=== PATIENT | male | born 1975 | race Caucasian/White ===

== ENCOUNTER 2024-09-02 18:25 | Observation (INO) | payer OTHER ==
--- NOTE | 2024-09-02 18:53 | ED ---
Weakness HPI - General Chief complaint: Weakness Stated complaint: Congestion,Weakness Time Seen by Provider: 09/02/24 18:33 Source: patient, RN notes reviewed, old records reviewed Mode of arrival: ambulatory Limitations: no limitations - History of Present Illness Initial comments: This is a 49-year-old male sent by primary care, patient went to primary care's office for evaluation of testosterone patient presents to us for shortness of breath weakness somnolence and feeling unwell. Patient has been borderline diabetes for some time as well as known to have elevated blood pressure without treatment. Patient takes no medications denies drugs or alcohol not currently a smoker. Patient states he has been severely short of breath for about a week and with any activity he gets severely short of breath and has to stop and sit down. MD Complaint: generalized weakness, lack of energy, difficulty walking -: days(s) Location: generalized Severity: severe Severity scale (1-10): 9 Consistency: constant Improves with: none Worsens with: none Context: recent illness Associated Symptoms: chest pain, loss of appetite, shortness of breath - Related Data Allergies Allergy/AdvReac Type Severity Reaction Status Date / Time No Known Allergies Allergy Verified 09/02/24 18:38 Review of Systems ROS Statement: Those systems with pertinent positive or pertinent negative responses have been documented in the HPI. ROS Other: All systems not noted in ROS Statement are negative. Past Medical History Past Medical History: Hypertension Additional Past Medical History / Comment(s): Low testosterone levels Additional Past Surgical History / Comment(s): oral surgery Smoking Status: Former smoker Past Alcohol Use History: Rare Past Drug Use History: Marijuana General Exam Limitations: no limitations General appearance: alert, in no apparent distress, anxious, in distress Head exam: Present: atraumatic, normocephalic, normal inspection Eye exam: Present: normal appearance, PERRL, EOMI. Absent: scleral icterus, conjunctival injection, periorbital swelling ENT exam: Present: normal exam, mucous membranes moist Neck exam: Present: normal inspection. Absent: tenderness, meningismus, lymphadenopathy Respiratory exam: Present: normal lung sounds bilaterally. Absent: respiratory distress, wheezes, rales, rhonchi, stridor Cardiovascular Exam: Present: normal rhythm, tachycardia, normal heart sounds. Absent: systolic murmur, diastolic murmur, rubs, gallop, clicks GI/Abdominal exam: Present: soft, normal bowel sounds. Absent: distended, tenderness, guarding, rebound, rigid Extremities exam: Present: normal inspection, full ROM, normal capillary refill. Absent: tenderness, pedal edema, joint swelling, calf tenderness Back exam: Present: normal inspection Neurological exam: Present: alert, oriented X3, CN II-XII intact Psychiatric exam: Present: normal affect, normal mood Skin exam: Present: warm, dry, intact, normal color. Absent: rash Course Vital Signs 09/02/24 09/02/24 09/02/24 18:35 19:19 19:40 Temperature 97.5 F L Pulse Rate 104 H 89 Respiratory 24 20 Rate Blood Pressure 200/132 179/105 201/110 O2 Sat by Pulse 95 98 Oximetry 09/02/24 09/02/24 09/02/24 19:45 19:54 20:10 Temperature Pulse Rate 89 85 89 Respiratory 18 18 18 Rate Blood Pressure 216/117 179/114 150/114 O2 Sat by Pulse 95 98 98 Oximetry 09/02/24 09/02/24 09/02/24 20:22 20:58 21:16 Temperature Pulse Rate 89 85 92 Respiratory 18 16 18 Rate Blood Pressure 167/119 160/98 144/117 O2 Sat by Pulse 98 96 98 Oximetry 09/02/24 22:01 Temperature Pulse Rate 79 Respiratory 18 Rate Blood Pressure 167/78 O2 Sat by Pulse 95 Oximetry - Reevaluation(s) Reevaluation #1: 09/02/24 22:16 Medical records reviewed Reevaluation #2: 09/02/24 22:16 Patient symptoms do seem to wax and wane here in the ER he was initially feeling good and wanted to go home but currently feeling weak short of breath and unwell Reevaluation #3: 09/02/24 22:16 Patient informed of results questions answered Reevaluation #4: Was pt. sent in by a medical professional or institution (, PA, SERVICE ADVISOR, urgent care, hospital, or [facility]...) When possible be specific @ -no Did you speak to anyone other than the patient for history (EMS, parent, family, police, friend...)? What history was obtained from this source @ -no Did you review nursing and triage notes (agree or disagree)? Why? @ -agree Are old charts reviewed (outside hosp., previous admission, EMS record, old EKG, old radiological studies, urgent care reports/EKG's, [facility] records)? Report findings @ -yes Differential Diagnosis (chest pain, altered mental status, abdominal pain women, abdominal pain men, vaginal bleeding, weakness, fever, dyspnea, syncope, headache, dizziness, GI bleed, back pain, seizure, CVA, palpatations, mental health, musculoskeletal)? @ -prior EKG interpreted by me (3pts min.). @ -yes X-rays interpreted by me (1pt min.). @ -yes negative for acute disease CT interpreted by me (1pt min.). @ -no U/S interpreted by me (1pt. min.). @ -no What testing was considered but not performed or refused? (CT, X-rays, U/S, labs)? Why? @ -none What meds were considered but not given or refused? Why? @ -none Did you discuss the management of the patient with other professionals (professionals i.e. , PA, SERVICE ADVISOR, lab, RT, psych nurse, dialysis social worker, farmworker field crop, teacher, chief marketing officer, correctional counselor/case manager)? Give summary @ -no Was smoking cessation discussed for >3mins.? @ -no Was critical care preformed (if so, how long)? @ -no Were there social determinants of health that impacted care today? How? (Homelessness, low income, unemployed, alcoholism, drug addiction, transportation, low edu. Level, literacy, decrease access to med. care, long-term, rehab)? @ -none Was there de-escalation of care discussed even if they declined (Discuss DNR or withdrawal of care, Hospice)? DNR status @ -no What co-morbidities impacted this encounter? (DM, HTN, Smoking, COPD, CAD, Cancer, CVA, ARF, Chemo, Hep., AIDS, mental health diagnosis, sleep apnea, morbid obesity)? @ -none Was patient admitted / discharged? Hospital course, mention meds given and route, prescriptions, significant lab abnormalities, going to OR and other pertinent info. @ - Undiagnosed new problem with uncertain prognosis? @ -no Drug Therapy requiring intensive monitoring for toxicity (Heparin, Nitro, Insulin, Cardizem)? @ -no Were any procedures done? @ -no Diagnosis/symptom? @ - Acute, or Chronic, or Acute on Chronic? @ -Acute Uncomplicated (without systemic symptoms) or Complicated (systemic symptoms)? @ -Complicated Side effects of treatment? @ -no Exacerbation, Progression, or Severe Exacerbation? @ -exacerbation Poses a threat to life or bodily function? How? (Chest pain, USA, IA, pneumonia, PE, COPD, DKA, ARF, appy, cholecystitis, CVA, Diverticulitis, Homicidal, Suicidal, threat to staff... and all critical care pts) @ -yes Reevaluation #5: Differential Dyspnea: Coronary syndrome, arrhythmia, tamponade, asthma, COPD, pulmonary embolism, pneumonia, pneumothorax, pulmonary effusion, anaphylaxis, diabetic ketoacidosis, flailed chest, pulmonary contusion, diaphragmatic rupture, anemia, neuromuscular, this is not meant to be an all-inclusive list. Differential Weakness: Hypoglycemia, shock, sepsis, hyponatremia, anemia, infection, IA, ETOH, adverse medicine reaction, overdose, stroke, this is not meant to be an all-inclusive list. - Consultations Consultation #1: Spoke with Dr. Forrester who agrees to admit this patient EKG Findings - EKG Comments: EKG Findings:: EKG is sinus 97 NC 184 QRS 93 QTc 395 - EKG Results: EKG: interpreted by SHAJI Medical Decision Making - Medical Decision Making 49 male presented to the ER for evaluation of feeling unwell shortness of breath especially with exertion symptoms worsening over couple days now. Patient states he is thirsty when the bathroom the time he does have new onset diabetes he is also found to have significantly uncontrolled and new diagnosis of hypertension with pulmonary edema on x-ray will admit for cardiology evaluation echo, mild diuresis watching for blood sugar and treatment of diabetes, blood pressure is out of control taking multiple medications to treat - Lab Data Result diagrams: 09/02/24 18:57 09/02/24 18:57 Lab Results 09/02/24 09/02/24 09/02/24 Range/Units 18:52 18:57 18:57 WBC 7.71 (4.50-10.00) 10*3/uL RBC 6.02 H (4.40-5.60) 10*6/uL Hgb 18.6 H (13.0-17.0) g/dL Hct 52.2 H (39.6-50.0) % MCV 86.7 (80.0-97.0) fL MCH 30.9 (27.0-32.0) pg MCHC 35.6 (32.0-37.0) g/dL Plt Count 228 (140-440) 10*3/uL MPV 10.5 (9.5-12.2) fL Immature Gran % (Auto) 1.0 % Neutrophils % 62.4 % Lymphocytes % 25.6 % Monocytes % 9.5 % Eosinophils % 1.0 % Basophils % 0.5 % Immature Gran # 0.08 H (0.00-0.04) 10*3/uL Neutrophils # 4.81 (1.80-7.70) 10*3/uL Lymphocytes # 1.97 (0.90-5.00) 10*3/uL Monocytes # 0.73 (0.20-1.00) 10*3/uL Eosinophils # 0.08 (0.04-0.35) 10*3/uL Basophils # 0.04 (0.00-0.10) 10*3/uL PT 10.2 (10.0-12.5) sec INR 0.9 (<1.2) APTT 22.0 (22.0-30.0) sec D-Dimer 0.32 (<0.60) mg/L FEU VBG pH (7.31-7.41) VBG pCO2 (37-51) mmHg VBG HCO3 (24-28) mmol/L Sodium (137-145) mmol/L Potassium (3.5-5.1) mmol/L Chloride (98-107) mmol/L Carbon Dioxide (22-30) mmol/L Anion Gap mmol/L BUN (9-20) mg/dL Creatinine (0.66-1.25) mg/dL Est GFR (CKD-EPI)AfAm (>60 ml/min/1.73 sqM) Est GFR (CKD-EPI)NonAf (>60 ml/min/1.73 sqM) Glucose (74-99) mg/dL POC Glucose (mg/dL) 345 H (70-110) mg/dL POC Glu Litigation Examiner ID [facility] Plasma Lactic Acid Paolo (0.7-2.0) mmol/L Calcium (8.4-10.2) mg/dL Phosphorus (2.5-4.5) mg/dL Magnesium (1.6-2.3) mg/dL Total Bilirubin (0.2-1.3) mg/dL AST (17-59) U/L ALT (4-49) U/L Alkaline Phosphatase (38-126) U/L Troponin I (0.000-0.034) ng/mL NT-Pro-B Natriuret Pep pg/mL Total Protein (6.3-8.2) g/dL Albumin (3.5-5.0) g/dL Lipase (23-300) U/L Acetone, Qual (Negative) Influenza Type A (PCR) (Not Detectd) Influenza Type B (PCR) (Not Detectd) RSV (PCR) (Not Detectd) SARS-CoV-2 (PCR) (Not Detectd) Group A Strep (PCR) (Not Detectd) 09/02/24 09/02/24 09/02/24 Range/Units 18:57 18:57 18:57 WBC (4.50-10.00) 10*3/uL RBC (4.40-5.60) 10*6/uL Hgb (13.0-17.0) g/dL Hct (39.6-50.0) % MCV (80.0-97.0) fL MCH (27.0-32.0) pg MCHC (32.0-37.0) g/dL Plt Count (140-440) 10*3/uL MPV (9.5-12.2) fL Immature Gran % (Auto) % Neutrophils % % Lymphocytes % % Monocytes % % Eosinophils % % Basophils % % Immature Gran # (0.00-0.04) 10*3/uL Neutrophils # (1.80-7.70) 10*3/uL Lymphocytes # (0.90-5.00) 10*3/uL Monocytes # (0.20-1.00) 10*3/uL Eosinophils # (0.04-0.35) 10*3/uL Basophils # (0.00-0.10) 10*3/uL PT (10.0-12.5) sec INR (<1.2) APTT (22.0-30.0) sec D-Dimer (<0.60) mg/L FEU VBG pH (7.31-7.41) VBG pCO2 (37-51) mmHg VBG HCO3 (24-28) mmol/L Sodium 137 (137-145) mmol/L Potassium 4.9 (3.5-5.1) mmol/L Chloride 102 (98-107) mmol/L Carbon Dioxide 28 (22-30) mmol/L Anion Gap 7 mmol/L BUN 22 H (9-20) mg/dL Creatinine 0.94 (0.66-1.25) mg/dL Est GFR (CKD-EPI)AfAm >90 (>60 ml/min/1.73 sqM) Est GFR (CKD-EPI)NonAf >90 (>60 ml/min/1.73 sqM) Glucose 354 H (74-99) mg/dL POC Glucose (mg/dL) (70-110) mg/dL POC Glu Litigation Examiner ID Plasma Lactic Acid Paolo 1.8 (0.7-2.0) mmol/L Calcium 9.9 (8.4-10.2) mg/dL Phosphorus 3.9 (2.5-4.5) mg/dL Magnesium 1.8 (1.6-2.3) mg/dL Total Bilirubin 0.5 (0.2-1.3) mg/dL AST 38 (17-59) U/L ALT 51 H (4-49) U/L Alkaline Phosphatase 61 (38-126) U/L Troponin I <0.012 (0.000-0.034) ng/mL NT-Pro-B Natriuret Pep <20 pg/mL Total Protein 8.0 (6.3-8.2) g/dL Albumin 4.3 (3.5-5.0) g/dL Lipase 192 (23-300) U/L Acetone, Qual Negative (Negative) Influenza Type A (PCR) (Not Detectd) Influenza Type B (PCR) (Not Detectd) RSV (PCR) (Not Detectd) SARS-CoV-2 (PCR) (Not Detectd) Group A Strep (PCR) (Not Detectd) 09/02/24 09/02/24 09/02/24 Range/Units 18:58 19:19 19:19 WBC (4.50-10.00) 10*3/uL RBC (4.40-5.60) 10*6/uL Hgb (13.0-17.0) g/dL Hct (39.6-50.0) % MCV (80.0-97.0) fL MCH (27.0-32.0) pg MCHC (32.0-37.0) g/dL Plt Count (140-440) 10*3/uL MPV (9.5-12.2) fL Immature Gran % (Auto) % Neutrophils % % Lymphocytes % % Monocytes % % Eosinophils % % Basophils % % Immature Gran # (0.00-0.04) 10*3/uL Neutrophils # (1.80-7.70) 10*3/uL Lymphocytes # (0.90-5.00) 10*3/uL Monocytes # (0.20-1.00) 10*3/uL Eosinophils # (0.04-0.35) 10*3/uL Basophils # (0.00-0.10) 10*3/uL PT (10.0-12.5) sec INR (<1.2) APTT (22.0-30.0) sec D-Dimer (<0.60) mg/L FEU VBG pH 7.35 (7.31-7.41) VBG pCO2 54 H (37-51) mmHg VBG HCO3 30 H (24-28) mmol/L Sodium (137-145) mmol/L Potassium (3.5-5.1) mmol/L Chloride (98-107) mmol/L Carbon Dioxide (22-30) mmol/L Anion Gap mmol/L BUN (9-20) mg/dL Creatinine (0.66-1.25) mg/dL Est GFR (CKD-EPI)AfAm (>60 ml/min/1.73 sqM) Est GFR (CKD-EPI)NonAf (>60 ml/min/1.73 sqM) Glucose (74-99) mg/dL POC Glucose (mg/dL) (70-110) mg/dL POC Glu Litigation Examiner ID Plasma Lactic Acid Paolo (0.7-2.0) mmol/L Calcium (8.4-10.2) mg/dL Phosphorus (2.5-4.5) mg/dL Magnesium (1.6-2.3) mg/dL Total Bilirubin (0.2-1.3) mg/dL AST (17-59) U/L ALT (4-49) U/L Alkaline Phosphatase (38-126) U/L Troponin I (0.000-0.034) ng/mL NT-Pro-B Natriuret Pep pg/mL Total Protein (6.3-8.2) g/dL Albumin (3.5-5.0) g/dL Lipase (23-300) U/L Acetone, Qual (Negative) Influenza Type A (PCR) Not Detected (Not Detectd) Influenza Type B (PCR) Not Detected (Not Detectd) RSV (PCR) Not Detected (Not Detectd) SARS-CoV-2 (PCR) Not Detected (Not Detectd) Group A Strep (PCR) NOT DETECTED (Not Detectd) - EKG Data -: EKG Interpreted by Me - Radiology Data Radiology results: report reviewed (Chest x-ray is positive for pulmonary edema), image reviewed Critical Care Time Critical Care Time: Yes Total Critical Care Time: 31 Disposition Clinical Impression: Dehydration, Hyperglycemia, Newly diagnosed diabetes, Hypertension, Hypertensive emergency, Pulmonary edema Disposition: ADMITTED IP TO THIS [facility] Condition: Serious Is patient prescribed a controlled substance at d/c from ED?: No Referrals: Cesar Forrester MD [Primary Care Provider] - 1-2 days Time of Disposition: 22:15
[2024-09-02 18:54] LABS: Glucose,Whole Blood 345 mg/dL (70-110)
[2024-09-02 19:05] LABS: VBG PH 7.35 (7.31-7.41)
[2024-09-02 19:05] LABS: Basophils # (A) 0.04 10*3/uL (0.00-0.10); Basophils % (A) 0.5 %; Eosinophils # (A) 0.08 10*3/uL (0.04-0.35); HCT 52.2 % (39.6-50.0); HGB 18.6 g/dL (13.0-17.0); Lymphocytes # (A) 1.97 10*3/uL (0.90-5.00); Lymphocytes % (A) 25.6 %; MCH 30.9 pg (27.0-32.0); MCHC 35.6 g/dL (32.0-37.0); MCV 86.7 fL (80.0-97.0); Mean Platelet Volume 10.5 fL (9.5-12.2); Monocytes # (A) 0.73 10*3/uL (0.20-1.00); Monocytes % (A) 9.5 %; Neutrophils # (A) 4.81 10*3/uL (1.80-7.70); Neutrophils % (A) 62.4 %; Platelet Count 228 10*3/uL (140-440); RBC 6.02 10*6/uL (4.40-5.60); RDW 12.1 % (11.5-14.5); WBC 7.71 10*3/uL (4.50-10.00)
[2024-09-02] MEDS: KETOROLAC 15 MG/ML 1 ML VIAL IVP STA (19:16)
[2024-09-02] MEDS: SODIUM CHLORIDE 0.9% 1,000 ML IV SCH (19:17)
[2024-09-02] MEDS: ACETAMINOPHEN IV (For NPO) 1,000 MG in EMPTY BAG 1 BAG IVPB STA (19:25)
[2024-09-02 19:30] LABS: ALT 51 U/L (4-49); African American GFR (CKD) >90 (>60 ml/min/1.73 sqM); Albumin 4.3 g/dL (3.5-5.0); Anion Gap 7 mmol/L; Blood Urea Nitrogen 22 mg/dL (9-20); Calcium 9.9 mg/dL (8.4-10.2); Carbon Dioxide 28 mmol/L (22-30); Chloride 102 mmol/L (98-107); Glucose 354 mg/dL (74-99); Lipase 192 U/L (23-300); Non-African American GFR(CKD) >90 (>60 ml/min/1.73 sqM); Sodium 137 mmol/L (137-145); Total Bilirubin 0.5 mg/dL (0.2-1.3)
[2024-09-02 19:31] LABS: AST 38 U/L (17-59); Alkaline Phosphatase 61 U/L (38-126); Magnesium 1.8 mg/dL (1.6-2.3); Phosphorus 3.9 mg/dL (2.5-4.5); Potassium 4.9 mmol/L (3.5-5.1)
[2024-09-02 19:32] LABS: NT-Pro-B-Type Natriuretic Pept <20 pg/mL
[2024-09-02 19:35] LABS: INR 0.9 (<1.2); Prothrombin Time 10.2 sec (10.0-12.5)
[2024-09-02] MEDS: LABETALOL 5 MG/ML VIAL MDV IVP STA (19:48)
[2024-09-02] MEDS: cloNIDine 0.2 MG/24HR PATCH TRANSDERM STA (19:56)
[2024-09-02 20:03] LABS: Influenza A Not Detected (Not Detectd); Influenza B Not Detected (Not Detectd); RSV Not Detected (Not Detectd)
--- NOTE | 2024-09-02 20:35 | XR ---
EXAMINATION TYPE: XR chest 2V DATE OF EXAM: 09/02/2024 CLINICAL INDICATION: Male, 49 years old with history of sob, TECHNIQUE: Frontal and lateral views of the chest are obtained. COMPARISON: None FINDINGS: There is cardiomegaly with mild central vascular congestion. No pleural effusion or pneumo thorax seen bilaterally. The osseous structures are intact. IMPRESSION: Findings suggest mild CHF exacerbation. Correlate clinically. [facility], , 09/02/2024 8:33 PM
[2024-09-02] MEDS: FUROSEMIDE 10 MG/ML 10 ML VIAL IV STA (21:06)
[2024-09-02] MEDS: SODIUM CHLORIDE 0.9% 1,000 ML IV ONE (21:08)
[2024-09-02] MEDS: SODIUM CHLORIDE 0.9% 500 ML 500 ML IV ONE (21:08)
[2024-09-02] MEDS: ENALAPRILAT 1.25 MG/ML 1 ML VIAL IVP STA (21:15)
[2024-09-02] MEDS ORDERED: ONDANSETRON 4 MG/2 ML VIAL IVP PRN (22:12)
[2024-09-02] MEDS ORDERED: MORPHINE SULFATE 4 MG/ML SYRINGE IV PRN (22:12)
[2024-09-02] MEDS ORDERED: NALOXONE 0.4 MG/ML 1 ML VIAL IV PRN (22:12)
[2024-09-02 22:21] LABS: Glucose,Whole Blood 318 mg/dL (70-110)
[2024-09-02] MEDS: hydrALAZINE HCL 20 MG/ML 1 ML VIAL IVP STA (22:23)
[2024-09-02] MEDS: INSULIN REGULAR 100 UNIT/ML VIAL (IM/SQ) SQ ONE (22:24)
[2024-09-02] MEDS: METOPROLOL TARTRATE 25 MG TAB PO SCH (22:24)
[2024-09-02 22:51] LABS: Glucose,Whole Blood 312 mg/dL (70-110)
[2024-09-03 00:36] LABS: Basophils # (A) 0.01 10*3/uL (0.00-0.10); Basophils % (A) 0.2 %; Eosinophils # (A) 0.07 10*3/uL (0.04-0.35); Eosinophils % (A) 1.1 %; HCT 46.2 % (39.6-50.0); HGB 16.2 g/dL (13.0-17.0); Lymphocytes # (A) 2.05 10*3/uL (0.90-5.00); Lymphocytes % (A) 33.4 %; MCH 30.9 pg (27.0-32.0); MCHC 35.1 g/dL (32.0-37.0); Mean Platelet Volume 10.5 fL (9.5-12.2); Monocytes # (A) 0.52 10*3/uL (0.20-1.00); Monocytes % (A) 8.5 %; Neutrophils # (A) 3.44 10*3/uL (1.80-7.70); Platelet Count 195 10*3/uL (140-440); RBC 5.25 10*6/uL (4.40-5.60); RDW 12.4 % (11.5-14.5); WBC 6.14 10*3/uL (4.50-10.00)
[2024-09-03 01:01] LABS: ALT 38 U/L (4-49); AST 27 U/L (17-59); African American GFR (CKD) >90 (>60 ml/min/1.73 sqM); Albumin 3.5 g/dL (3.5-5.0); Alkaline Phosphatase 66 U/L (38-126); Anion Gap 11 mmol/L; Blood Urea Nitrogen 21 mg/dL (9-20); Carbon Dioxide 25 mmol/L (22-30); Chloride 100 mmol/L (98-107); Glucose 384 mg/dL (74-99); Magnesium 1.6 mg/dL (1.6-2.3); Non-African American GFR(CKD) >90 (>60 ml/min/1.73 sqM); Phosphorus 4.1 mg/dL (2.5-4.5); Potassium 4.2 mmol/L (3.5-5.1); Sodium 136 mmol/L (137-145); Total Bilirubin 0.3 mg/dL (0.2-1.3); Total Protein 6.3 g/dL (6.3-8.2)
[2024-09-03] MEDS ORDERED: ACETAMINOPHEN TAB 325 MG TAB PO PRN (02:47)
[2024-09-03] MEDS: ACETAMINOPHEN TAB 325 MG TAB PO PRN (03:02)
[2024-09-03 04:34] LABS: Appearance,Urine Clear (Clear); Bilirubin,Urine Negative (Negative); Blood,Urine Negative (Negative); Color,Urine Colorless; Glucose,Urine (UA) 4+ (Negative); Ketones,Urine Negative (Negative); Leukocyte Esterase,Urine Negative (Negative); Nitrite,Urine Negative (Negative); PH, Urine 5.5 (5.0-8.0); Protein,Urine Negative (Negative); Specific Gravity,Urine 1.034 (1.001-1.035); Urobilinogen,Urine <2.0 mg/dL (<2.0)
[2024-09-03] MEDS: FUROSEMIDE 40 MG TAB PO SCH (09:06)
[2024-09-03] MEDS: lisinopriL 20 MG TAB PO SCH (09:06)
[2024-09-03] MEDS: hydrALAZINE HCL 50 MG TAB PO SCH (09:06)
[2024-09-03] MEDS: VALSARTAN 80 MG TAB PO SCH ×2 (09:07→20:48)
[2024-09-03] MEDS: INSULIN GLARGINE (LANTUS) 100 UNIT/ML SYR SQ SCH (09:30)
[2024-09-03 11:37] LABS: Glucose,Whole Blood 276 mg/dL (70-110)
[2024-09-03] MEDS: amLODIPine 5 MG TAB PO SCH (11:59)
[2024-09-03] MEDS: carvediloL 6.25 MG TAB PO SCH (11:59)
[2024-09-03] MEDS: ASPIRIN 81 MG PO SCH (11:59)
[2024-09-03] MEDS: DAPAGLIFLOZIN PROPANEDIOL 10 MG TABLET PO SCH (12:00)
[2024-09-03] MEDS: metFORMIN 500 MG TAB PO SCH (12:00)
[2024-09-03] MEDS: TRIAMTERENE-HCTZ 37.5-25MG 1 EACH CAP PO SCH (12:00)
[2024-09-03] MEDS: INSULIN LISPRO (HumaLOG) 100 UNIT/ML 10 mL VL SQ SCH (12:03)
--- NOTE | 2024-09-03 12:29 | P.CRDCN ---
History of Present Illness History of present illness: HISTORY OF PRESENT ILLNESS: This is a 49-year-old male with a past medical history significant for hypertension and diabetes. Patient does not follow with a cell maker. We have been asked to see the patient in consultation for hypertension. Patient examined at the bedside. Patient states he presented to the hospital with a chief complaint of shortness of breath. He states he has been feeling short of breath for the past week. He denies having any chest pain or pressure. He reports that he was recently diagnosed with diabetes and hypertension. Additionally he was started on testosterone injections outpatient due to low libido. He reports occasional alcohol use. He is a non-smoker. Denies any drug use. Patient was found to have extremely elevated blood pressure upon admission with a reading of 200/132. DIAGNOSTICS: - EKG reveals sinus mechanism with no signs of acute ischemia. - Chest xray findings suggest mild CHF exacerbation. Correlate clinically.. - Laboratory data: WBC 6.14. Hemoglobin 16.2. Platelet count 195. Sodium 136. Potassium 4.2. BUN 21. Creatinine 0.87. Troponin negative x 2. TSH 1.670. proBNP less than 20. - Current home cardiac medications include losartan 100 mg daily, rosuvastatin 40 mg daily, amlodipine 10 mg daily, Catapres 0.1 mg daily. - No previous echocardiogram, stress test, or cardiac catheterization available in EMR for review REVIEW OF SYSTEMS: At the time of my exam: CONSTITUTIONAL: Denies fever or chills. HEENT: Denies blurred vision, vision changes, or eye pain. Denies hemoptysis CARDIOVASCULAR: Denies chest pain. Denies orthopnea. Denies PND. Denies palpitations RESPIRATORY: Denies shortness of breath. GASTROINTESTINAL: Denies abdominal pain. Denies nausea or vomiting. HEMATOLOGIC: Denies bleeding disorders. GENITOURINARY: Denies any blood in urine. SKIN: Denies pruitis. Denies rash. PHYSICAL EXAM: VITAL SIGNS: Reviewed. GENERAL: Well-developed in no acute distress. HEENT: Head is normocephalic. Pupils are equal, round. Sclerae anicteric. Mucous membranes of the mouth are moist. Neck supple. No JVD or thyromegaly LUNGS: Respirations even and unlabored. Lungs essentially clear to auscultation bilaterally. HEART: Regular rate and rhythm. S1 and S2 heard. ABDOMEN: Soft. Nondistended. Nontender. EXTREMITIES: Normal range of motion. No clubbing or cyanosis. Peripheral pulses intact. No lower extremity edema NEUROLOGIC: Awake and alert. Oriented x 3. ASSESSMENT: Hypertensive emergency Recently diagnosed hypertension Recently diagnosed diabetes Low libido, recently started on testosterone injections outpatient Polycythemia, likely secondary to testosterone injections Morbid obesity: BMI 44.8 PLAN: Obtain 2D echo to assess cardiac structure and function Check hemoglobin A1c and lipid panel TSH checked and unremarkable Discontinue clonidine, metoprolol, lisinopril, Lasix, and hydralazine Add metformin 500 mg twice a day Begin amlodipine 5 mg daily, aspirin 81 mg daily, carvedilol 6.25 mg twice a day, Lipitor 40mg daily, Farxiga 10 mg daily, valsartan 80 mg twice a day, and Dyazide 37.5-25 mg daily Continue to monitor blood pressure Recommend discontinuation of testosterone Recommend outpatient stress testing Continue to monitor patient for additional 24 hours Anticipate discharge home tomorrow Further recommendations pending patient course Nurse practitioner note has been reviewed by physician. Signing provider agrees with the documented findings, assessment, and plan of care documented by [employer] as a scribe. Past Medical History Past Medical History: Hypertension Additional Past Medical History / Comment(s): Low testosterone levels, high blood surgars ("not diabetic") History of Any Multi-Drug Resistant Organisms: None Reported Additional Past Surgical History / Comment(s): oral surgery Smoking Status: Former smoker Past Alcohol Use History: Rare Past Drug Use History: Marijuana Medications and Allergies Home Medications Medication Instructions Recorded Confirmed Type Glimepiride [Amaryl] 2 mg PO DAILY 09/03/24 09/03/24 History Losartan Potassium [Cozaar] 100 mg PO DAILY 09/03/24 09/03/24 History Rosuvastatin Calcium [Crestor] 40 mg PO DAILY 09/03/24 09/03/24 History Testosterone Cypionate 200 mg IM Q14D 09/03/24 09/03/24 History [Depo-Testosterone] amLODIPine [Norvasc] 10 mg PO BID 09/03/24 09/03/24 History cloNIDine HCL [Catapres] 0.1 mg PO DAILY 09/03/24 09/03/24 History Allergies Allergy/AdvReac Type Severity Reaction Status Date / Time No Known Allergies Allergy Verified 09/03/24 09:21 Physical Exam Vitals: Vital Signs Temp Pulse Pulse Resp BP BP Pulse Ox 09/03/24 07:13 98 F 71 17 171/101 99 09/03/24 02:21 97.5 F L 92 19 153/92 98 09/03/24 01:50 66 16 144/80 100 09/02/24 22:51 88 16 169/70 98 09/02/24 22:01 79 18 167/78 95 09/02/24 21:16 92 18 144/117 98 09/02/24 20:58 85 16 160/98 96 09/02/24 20:22 89 18 167/119 98 09/02/24 20:10 89 18 150/114 98 09/02/24 19:54 85 18 179/114 98 09/02/24 19:45 89 18 216/117 95 09/02/24 19:40 201/110 09/02/24 19:19 89 20 179/105 98 09/02/24 18:35 97.5 F L 104 H 24 200/132 95 Intake and Output 09/02/24 09/03/24 09/03/24 22:59 06:59 14:59 Other: # Voids 3 Weight 171.458 kg 171.458 kg Results 09/03/24 00:05 09/03/24 00:05 Cardiac Enzymes 09/02/24 09/02/24 09/03/24 Range/Units 18:57 18:57 00:05 AST 38 (17-59) U/L Troponin I <0.012 0.013 (0.000-0.034) ng/mL 09/03/24 09/03/24 Range/Units 00:05 06:53 AST 27 (17-59) U/L Troponin I 0.014 (0.000-0.034) ng/mL Coagulation 09/02/24 Range/Units 18:57 PT 10.2 (10.0-12.5) sec APTT 22.0 (22.0-30.0) sec CBC 09/02/24 09/03/24 Range/Units 18:57 00:05 WBC 7.71 6.14 (4.50-10.00) 10*3/uL RBC 6.02 H 5.25 (4.40-5.60) 10*6/uL Hgb 18.6 H 16.2 (13.0-17.0) g/dL Hct 52.2 H 46.2 (39.6-50.0) % Plt Count 228 195 (140-440) 10*3/uL Comprehensive Metabolic Panel 09/02/24 09/03/24 Range/Units 18:57 00:05 Sodium 137 136 L (137-145) mmol/L Potassium 4.9 4.2 (3.5-5.1) mmol/L Chloride 102 100 (98-107) mmol/L Carbon Dioxide 28 25 (22-30) mmol/L BUN 22 H 21 H (9-20) mg/dL Creatinine 0.94 0.87 (0.66-1.25) mg/dL Glucose 354 H 384 H (74-99) mg/dL Calcium 9.9 9.0 (8.4-10.2) mg/dL AST 38 27 (17-59) U/L ALT 51 H 38 (4-49) U/L Alkaline Phosphatase 61 66 (38-126) U/L Total Protein 8.0 6.3 (6.3-8.2) g/dL Albumin 4.3 3.5 (3.5-5.0) g/dL Current Medications Generic Name Dose Route Start Last Admin Trade Name Freq PRN Reason Stop Dose Admin Acetaminophen 650 mg 09/03/24 02:57 09/03/24 03:02 Acetaminophen Tab 325 Mg Tab PO 650 mg Q4HR PRN Administration Fever and/ or Pain Furosemide 40 mg 09/03/24 09:00 09/03/24 09:06 Furosemide 40 Mg Tab PO 40 mg DAILY FELIPE Administration Hydralazine HCl 100 mg 09/03/24 09:00 09/03/24 09:06 Hydralazine Hcl 50 Mg Tab PO 100 mg TID FELIPE Administration Sodium Chloride 1,000 mls @ 130 mls/hr 09/02/24 19:00 09/03/24 01:43 Saline 0.9% IV Not Given .[id number] [facility] Insulin Glargine 60 unit 09/03/24 07:00 09/03/24 09:30 Insulin Glargine (Lantus) 100 Unit/Ml Syr SQ 60 unit DAILY@0700 FELIPE Administration Insulin Human Lispro 10 unit 09/03/24 12:30 Insulin Lispro (Humalog) 100 Unit/Ml 10 Ml Vl SQ ACHS [facility] Lisinopril 40 mg 09/03/24 09:00 09/03/24 09:06 Lisinopril 20 Mg Tab PO 40 mg DAILY FELIPE Administration Metoprolol Tartrate 25 mg 09/02/24 22:15 09/03/24 09:06 Metoprolol Tartrate 25 Mg Tab PO 25 mg BID FELIPE Administration Morphine Sulfate 4 mg 09/02/24 22:12 Morphine Sulfate 4 Mg/Ml Syringe IV Q4HR PRN Severe Pain (Scale 7 to 10) Naloxone HCl 0.2 mg 09/02/24 22:12 Naloxone 0.4 Mg/Ml 1 Ml Vial IV Q2M PRN Opioid Reversal Ondansetron HCl 4 mg 09/02/24 22:12 Ondansetron 4 Mg/2 Ml Vial IVP Q8HR PRN Nausea And Vomiting Valsartan 80 mg 09/03/24 09:00 09/03/24 09:07 Valsartan 80 Mg Tab PO 80 mg DAILY FELIPE Administration Intake and Output 09/02/24 09/03/24 09/03/24 22:59 06:59 14:59 Other: # Voids 3 Weight 171.458 kg 171.458 kg 09/03/24 00:05 09/03/24 00:05
--- NOTE | 2024-09-03 12:59 | CA ---
Transthoracic Echo Report Name: Raymond Garcia Age: 49 Gender: M : 1975 Exam Date: 09/03/2024 09:50 Exam Location: [facility] Ht (in): 77 Wt (lb): 378 Ordering Physician: William Ruiz DO Attending/Referring Phys: [id number], Sara Payroll Director Marlene Chavarria RDCS Procedure CPT: Indications: chf Cardiac Hx: Technical Quality: Fair Contrast 1: Total Dose (mL): Contrast 2: Total Dose (mL): MEASUREMENTS (Male / Female) Normal Values 2D ECHO LV Diastolic Diameter PLAX 5.2 cm 4.2 - 5.9 / 3.9 - 5.3 cm LV Systolic Diameter PLAX 3.2 cm IVS Diastolic Thickness 1.5 cm 0.6 - 1.0 / 0.6 - 0.9 cm LVPW Diastolic Thickness 1.4 cm 0.6 - 1.0 / 0.6 - 0.9 cm LV Relative Wall Thickness 0.6 RV Internal Dim ED PLAX 2.7 cm LA Systolic Diameter LX 4.9 cm 3.0 - 4.0 / 2.7 - 3.8 cm LV Diastolic Volume MOD BP 155.1 cm??? 67 - 155 / 56 - 104 cm??? LV Systolic Volume MOD BP 62.7 cm??? 22 - 58 / 19 - 49 cm??? LV Ejection Fraction MOD BP 59.6 % >= 55 % LV Cardiac Index MOD BP 2366.9 cm???/min???m??? LV Diastolic Volume MOD 4C 198.9 cm??? LV Systolic Volume MOD 4C 71.3 cm??? LV Ejection Fraction MOD 4C 64.2 % LV Cardiac Index MOD 4C 3267.9 cm???/min???m??? LV Diastolic Length 4C 9.8 cm LV Systolic Length 4C 8.4 cm LV Diastolic Volume MOD 2C 125.4 cm??? LV Systolic Volume MOD 2C 55.5 cm??? LV Ejection Fraction MOD 2C 55.8 % LV Cardiac Index MOD 2C 1790.5 cm???/min???m??? LV Diastolic Length 2C 9.8 cm LV Systolic Length 2C 8.4 cm LA Volume 81.2 cm??? 18 - 58 / 22 - 52 cm??? LA Volume Index 26.0 cm???/m??? 16 - 28 cm???/m??? M-MODE Aortic Root Diameter MM 3.5 cm LA Systolic Diameter MM 4.5 cm LA Ao Ratio MM 1.3 AV Cusp Separation MM 2.3 cm DOPPLER AV Peak Velocity 158.6 cm/s AV Peak Gradient 10.1 mmHg MV Area PHT 3.7 cm??? Mitral E Point Velocity 86.5 cm/s Mitral A Point Velocity 97.8 cm/s Mitral E to A Ratio 0.9 MV Deceleration Time 203.0 ms FINDINGS Left Ventricle Left ventricular ejection fraction is estimated at 55-60 %. Moderately increased septal wall thickness. Mildly increased left ventricular systolic volume. Normal left ventricular systolic function with no obvious regional wall motion abnormalities. Right Ventricle Normal right ventricular size. Right Atrium Moderate right atrial dilatation. Left Atrium Moderately increased left atrial diameter. Mitral Valve Structurally normal mitral valve. Mild mitral regurgitation. No mitral stenosis. Aortic Valve Trileaflet aortic valve. No aortic valve stenosis or regurgitation. Tricuspid Valve Structurally normal tricuspid valve. Trace to mild tricuspid regurgitation. No tricuspid stenosis. Pulmonic Valve Structurally normal pulmonic valve. Trace pulmonic regurgitation. No pulmonic stenosis. Pericardium No pericardial or pleural effusion. Aorta Normal size aortic root and proximal ascending aorta. CONCLUSIONS LVEF 55% No obvious regional wall motion abnormality Mild concentric LVH Moderate biatrial dilatation Mild MR, mild TR, Previewed by: Dr Justice Almaraz (Electronically Signed) Final Date: 03 September 2024 12:57
[2024-09-03 16:25] LABS: Glucose,Whole Blood 323 mg/dL (70-110)
[2024-09-03 18:26] LABS: Chol/HDL Ratio 7.51 Ratio
[2024-09-03 20:41] LABS: Glucose,Whole Blood 198 mg/dL (70-110)
--- NOTE | 2024-09-03 20:45 | PN ---
PROGRESS NOTE DATE OF SERVICE: 09/03/2024 CHIEF COMPLAINT: URI, bronchitis and possible right lower lobe pneumonitis with uncontrolled hypertension, diabetes. HISTORY OF PRESENT ILLNESS: This gentleman is more alert. He does feel better. He denies any chest pain or shortness of breath. PHYSICAL EXAMINATION: VITAL SIGNS: Normal except for an elevated blood pressure. CHEST: Demonstrates poor breath sounds without any wheezing. There are rhonchi. CARDIAC: Normal. ABDOMEN: Protuberant, soft and nontender. IMPRESSION: 1. Bronchitis. 2. Upper respiratory infection. 3. Possible right lower lobe pneumonitis. 4. Dehydration. 5. Delirium. 6. Uncontrolled hypertension. 7. Uncontrolled diabetes. 8. Possible congestive heart failure. PLAN: 1. Continue to address hypertension and diabetes. 2. Echocardiogram. 3. Cardiology consult. MMODL / IJN: [id number] /
[2024-09-03] MEDS: ATORVASTATIN 40 MG TAB PO SCH (20:47)
--- NOTE | 2024-09-03 21:50 | HP ---
HISTORY AND PHYSICAL CHIEF COMPLAINT: Weakness, fever, chills, malaise and mental status changes with uncontrolled hypertension and diabetes. HISTORY OF PRESENT ILLNESS: This is the first known admission for this 49-year-old obese white male. He has been coming to the office for the last several months with uncontrolled diabetes and blood pressure. He is a very reluctant patient. He does not want to take certain medications and treatments including insulin, which is in need of. He presented to the office with what sounds like an upper respiratory infection and bronchitis, but he was lethargic, dehydrated, weak and delirious. Chest x-ray suggested that he might have a slight right lower lobe pneumonitis, but other studies could not be done on a stat basis and he was sent to the emergency room. In the office, his blood sugar was 359 and his blood pressure is 172/102. He was dehydrated. REVIEW OF SYSTEMS: He did not complaint of headache, chest pain, abdominal pain, vomiting, diarrhea, etc. He was short of breath. Past medical history, family history personal and social histories reveal that he is not. ALLERGIC: To any medication. He is on clonidine 0.1 once a day, glimepiride 2 mg once a day, losartan 100 mg once a day, testosterone injections, amlodipine 10 mg twice a day, Crestor 40 mg once a day. He used to smoke, but does not any longer. PHYSICAL EXAM: Blood pressure is 172/102 with a pulse of 106 and regular. Head, ears, eyes, nose, mouth and throat were normal except for nasal congestion. Chest demonstrated decreased breath sounds with scattered rales and wheezing throughout. Demonstrates sinus tachycardia. The abdomen is protuberant, soft and nontender. Extremities are normal. Neurologically he was lethargic, but intact. IMPRESSION: 1. Upper respiratory infection. 2. Bronchitis. 3. Possible right lower lobe pneumonitis. 4. Uncontrolled hypertension. 5. Uncontrolled diabetes. 6. Dehydration. PLAN: 1. Bedrest. 2. IV fluids. 3. Control hypertension diabetes. 4. Cardiology consult. MMODL / IJN: [id number] /
[2024-09-04 02:05] LABS: Glucose,Whole Blood 203 mg/dL (70-110)
[2024-09-04 06:05] LABS: Glucose,Whole Blood 204 mg/dL (70-110)
[2024-09-04] MEDS: INSULIN GLARGINE (LANTUS) 100 UNIT/ML SYR SQ SCH (11:40)
[2024-09-04] MEDS: carvediloL 12.5 MG TAB PO SCH ×2 (11:40→16:51)
[2024-09-04 11:41] LABS: Glucose,Whole Blood 157 mg/dL (70-110)
[2024-09-04] MEDS: amLODIPine 5 MG TAB PO ONE (11:46)
--- NOTE | 2024-09-04 12:13 | P.PN ---
Subjective HISTORY OF PRESENT ILLNESS: This is a 49-year-old male with a past medical history significant for hypertension and diabetes. 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 We have been asked to see the patient in consultation for hypertension. Patient examined at the bedside. Patient states he presented to the hospital with a chief complaint of shortness of breath. He states he has been feeling short of breath for the past week. He denies having any chest pain or pressure. He reports that he was recently diagnosed with diabetes and hypertension. Additionally he was started on testosterone injections outpatient due to low libido. He reports occasional alcohol use. He is a non-smoker. Denies any drug use. Patient was found to have extremely elevated blood pressure upon admission with a reading of 200/132. DIAGNOSTICS: - EKG reveals sinus mechanism with no signs of acute ischemia. - Chest xray findings suggest mild CHF exacerbation. Correlate clinically.. - Laboratory data: WBC 6.14. Hemoglobin 16.2. Platelet count 195. Sodium 136. Potassium 4.2. BUN 21. Creatinine 0.87. Troponin negative x 2. TSH 1.670. proBNP less than 20. - Current home cardiac medications include losartan 100 mg daily, rosuvastatin 40 mg daily, amlodipine 10 mg daily, Catapres 0.1 mg daily. - No previous echocardiogram, stress test, or cardiac catheterization available in EMR for review 09/04/2024 Patient examined this morning to bedside. Patient currently denies chest pain or pressure. He denies shortness of breath. Blood pressures in the 150s. Echocardiogram completed revealing ejection fraction 55 to 60%, no obvious regional wall motion abnormalities, mild concentric LVH, mild MR, mild TR PHYSICAL EXAM: VITAL SIGNS: Reviewed. GENERAL: Well-developed in no acute distress. HEENT: Head is normocephalic. Pupils are equal, round. Sclerae anicteric. Mucous membranes of the mouth are moist. Neck supple. No JVD or thyromegaly LUNGS: Respirations even and unlabored. Lungs essentially clear to auscultation bilaterally. HEART: Regular rate and rhythm. S1 and S2 heard. ABDOMEN: Soft. Nondistended. Nontender. EXTREMITIES: Normal range of motion. No clubbing or cyanosis. Peripheral pulses intact. No lower extremity edema NEUROLOGIC: Awake and alert. Oriented x 3. ASSESSMENT: Hypertensive emergency Recently diagnosed hypertension Recently diagnosed diabetes, hemoglobin A1c 10.5 Hypertriglyceridemia Low libido, recently started on testosterone injections outpatient Polycythemia, likely secondary to testosterone injections Morbid obesity: BMI 44.8 PLAN: Continue current cardiac medications including amlodipine, aspirin, Lipitor, carvedilol, Farxiga, Dyazide, and valsartan Patient encouraged to monitor his blood pressures on an outpatient basis Recommend discontinuation of testosterone Recommend outpatient stress testing Patient is stable for discharge home today from a cardiac standpoint Patient to follow-up postdischarge with Dr. Almaraz Nurse practitioner note has been reviewed by physician. Signing provider agrees with the documented findings, assessment, and plan of care documented by PROFESSOR OF HISTORY as a scribe. Objective - Vital Signs Vital signs: Vital Signs Temp 97.5 F L 09/04/24 07:25 Pulse 59 L 09/04/24 07:25 Resp 16 09/04/24 07:25 BP 153/85 09/04/24 07:25 Pulse Ox 95 09/04/24 07:25 FiO2 Intake & Output 09/03/24 09/04/24 09/04/24 18:59 06:59 18:59 Weight 169.3 kg Other: Voiding Method Toilet # Voids 8 3 - Labs CBC & Chem 7: 09/03/24 00:05 09/03/24 00:05 Labs: Abnormal Lab Results - Last 24 Hours (Table) 09/03/24 09/03/24 09/03/24 Range/Units 00:05 00:05 16:24 POC Glucose (mg/dL) 323 H (70-110) mg/dL Hemoglobin A1c 10.5 H (<=6.0) % Triglycerides 554.00 H (0.00-149.00) mg/dL VLDL Cholesterol, Calc 110.80 H (5.00-40.00) mg/dL HDL Cholesterol 24.50 L (40.00-60.00) mg/dL 09/03/24 09/04/24 09/04/24 Range/Units 20:40 02:00 06:03 POC Glucose (mg/dL) 198 H 203 H 204 H (70-110) mg/dL Hemoglobin A1c (<=6.0) % Triglycerides (0.00-149.00) mg/dL VLDL Cholesterol, Calc (5.00-40.00) mg/dL HDL Cholesterol (40.00-60.00) mg/dL 09/04/24 Range/Units 11:39 POC Glucose (mg/dL) 157 H (70-110) mg/dL Hemoglobin A1c (<=6.0) % Triglycerides (0.00-149.00) mg/dL VLDL Cholesterol, Calc (5.00-40.00) mg/dL HDL Cholesterol (40.00-60.00) mg/dL Microbiology - Last 24 Hours (Table) 09/02/24 18:57 Blood Culture - Preliminary Blood
[2024-09-04] MEDS: INSULIN GLARGINE (LANTUS) 100 UNIT/ML SYR SQ ONE (12:20)
[2024-09-04 15:13] VITALS: BMI 44.2
--- NOTE | 2024-09-04 15:48 | XR ---
EXAMINATION TYPE: XR chest 1V portable DATE OF EXAM: 09/04/2024 11:31 AM COMPARISON: None. CLINICAL INDICATION: Male, 49 years old with history of pneumonitis, TECHNIQUE: XR chest 1V portable view(s) obtained. FINDINGS: The heart size is normal. The pulmonary vasculature is normal. The lungs are clear. IMPRESSION: 1. No acute pulmonary process. [facility], , 09/04/2024 3:46 PM
[2024-09-04 16:52] LABS: Glucose,Whole Blood 165 mg/dL (70-110)
[2024-09-04 20:50] LABS: Glucose,Whole Blood 195 mg/dL (70-110)
--- NOTE | 2024-09-05 03:03 | PN ---
PROGRESS NOTE DATE OF SERVICE: 09/04/2024 CHIEF COMPLAINT: Fever, bronchitis, uncontrolled hypertension and diabetes. HISTORY OF PRESENT ILLNESS: This gentleman is feeling better. He is not short of breath. He has had no chest pain. His cardiac workup has been negative. PHYSICAL EXAMINATION: LUNGS: Breath sounds are diminished and there are scattered rales and rhonchi. CARDIAC: Normal. IMPRESSION: 1. Bronchitis. 2. Uncontrolled blood pressure. 3. Uncontrolled diabetes. PLAN: Increase management of his diabetes and hypertension while increasing his activity. MMODL / IJN: [id number] /
[2024-09-05 06:27] LABS: Glucose,Whole Blood 167 mg/dL (70-110)
[2024-09-05] MEDS ORDERED: INSULIN GLARGINE (LANTUS) 100 UNIT/ML SYR SQ SCH (07:00)
[2024-09-05] MEDS: INSULIN GLARGINE (LANTUS) 100 UNIT/ML SYR SQ SCH (07:45)
[2024-09-05] MEDS: ATORVASTATIN 80 MG TAB PO SCH (07:46)
[2024-09-05] MEDS: amLODIPine 10 MG TAB PO SCH (07:46)
[2024-09-05 07:51] VITALS: BP 165/80; PULSE 82; RESP 16; TEMP 97.5
--- NOTE | 2024-09-05 11:14 | P.PN ---
Subjective HISTORY OF PRESENT ILLNESS: This is a 49-year-old male with a past medical history significant for hypertension and diabetes. 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 We have been asked to see the patient in consultation for hypertension. Patient examined at the bedside. Patient states he presented to the hospital with a chief complaint of shortness of breath. He states he has been feeling short of breath for the past week. He denies having any chest pain or pressure. He reports that he was recently diagnosed with diabetes and hypertension. Additionally he was started on testosterone injections outpatient due to low libido. He reports occasional alcohol use. He is a non-smoker. Denies any drug use. Patient was found to have extremely elevated blood pressure upon admission with a reading of 200/132. DIAGNOSTICS: - EKG reveals sinus mechanism with no signs of acute ischemia. - Chest xray findings suggest mild CHF exacerbation. Correlate clinically.. - Laboratory data: WBC 6.14. Hemoglobin 16.2. Platelet count 195. Sodium 136. Potassium 4.2. BUN 21. Creatinine 0.87. Troponin negative x 2. TSH 1.670. proBNP less than 20. - Current home cardiac medications include losartan 100 mg daily, rosuvastatin 40 mg daily, amlodipine 10 mg daily, Catapres 0.1 mg daily. - No previous echocardiogram, stress test, or cardiac catheterization available in EMR for review 09/04/2024 Patient examined this morning to bedside. Patient currently denies chest pain or pressure. He denies shortness of breath. Blood pressures in the 150s. Echocardiogram completed revealing ejection fraction 55 to 60%, no obvious regional wall motion abnormalities, mild concentric LVH, mild MR, mild TR 09/05/2024 Patient examined this morning at bedside. Patient denies chest pain or pressure. He denies shortness of breath. Vital signs are stable. Blood pressure 149/74. PHYSICAL EXAM: VITAL SIGNS: Reviewed. GENERAL: Well-developed in no acute distress. HEENT: Head is normocephalic. Pupils are equal, round. Sclerae anicteric. Mucous membranes of the mouth are moist. Neck supple. No JVD or thyromegaly LUNGS: Respirations even and unlabored. Lungs essentially clear to auscultation bilaterally. HEART: Regular rate and rhythm. S1 and S2 heard. ABDOMEN: Soft. Nondistended. Nontender. EXTREMITIES: Normal range of motion. No clubbing or cyanosis. Peripheral pulses intact. No lower extremity edema NEUROLOGIC: Awake and alert. Oriented x 3. ASSESSMENT: Hypertensive emergency Recently diagnosed hypertension Recently diagnosed diabetes, hemoglobin A1c 10.5 Hypertriglyceridemia Low libido, recently started on testosterone injections outpatient Polycythemia, likely secondary to testosterone injections Morbid obesity: BMI 44.8 PLAN: Continue current cardiac medications including amlodipine, aspirin, Lipitor, carvedilol, Farxiga, Dyazide, and valsartan Patient encouraged to monitor his blood pressures on an outpatient basis Recommend discontinuation of testosterone Recommend outpatient stress testing Patient is stable for discharge home today from a cardiac standpoint Patient to follow-up postdischarge with Dr. Almaraz We will sign off. Please reconsult if needed. Nurse practitioner note has been reviewed by physician. Signing provider agrees with the documented findings, assessment, and plan of care documented by SALT MINER as a scribe. Objective - Vital Signs Vital signs: Vital Signs Temp 97.5 F L 09/05/24 07:49 Pulse 82 09/05/24 07:49 Resp 16 09/05/24 07:49 BP 165/80 09/05/24 07:49 Pulse Ox 96 09/05/24 07:49 FiO2 Intake & Output 09/04/24 09/05/24 09/05/24 18:59 06:59 18:59 Weight 169.3 kg 167.7 kg Other: # Voids 6 3 # Bowel Movements 2 - Labs CBC & Chem 7: 09/03/24 00:05 09/03/24 00:05 Labs: Abnormal Lab Results - Last 24 Hours (Table) 09/04/24 09/04/24 09/04/24 Range/Units 11:39 16:50 20:44 POC Glucose (mg/dL) 157 H 165 H 195 H (70-110) mg/dL 09/05/24 Range/Units 06:24 POC Glucose (mg/dL) 167 H (70-110) mg/dL Microbiology - Last 24 Hours (Table) 09/02/24 18:57 Blood Culture - Preliminary Blood
--- NOTE | 2024-09-05 16:24 | DS ---
DISCHARGE SUMMARY CHIEF COMPLAINT: Fever, chills, malaise, and mental status changes with uncontrolled hypertension and diabetes. HISTORY OF PRESENT ILLNESS AND PHYSICAL EXAMINATION: Details of this man's history and physical can be found in the initial workup. LABORATORY STUDIES: While he is in the hospital, he had laboratory studies, details of which can be found in the laboratory section of his chart. COURSE IN THE HOSPITAL: He was placed on bedrest, started on intravenous fluids and management of his uncontrolled diabetes and hypertension. His chest x-ray initially was read as possibly being compatible with heart failure. His echocardiogram was unremarkable. He was seen by Cardiology. He became more awake and alert and his cough is improving. Blood sugars were coming into the decent range as was his blood pressure and it was felt that he could go home on the . He will go home on his usual activity. He will be on insulin, which he agrees to take. He will be seen in the office in several days. FINAL DIAGNOSES: 1. Mental status changes. 2. Viremia. 3. Bronchitis. 4. Uncontrolled hypertension. 5. Uncontrolled diabetes mellitus. 6. Obesity. OPERATIONS: None. CONSULTATIONS: Cardiology. He is improved. MMODL / IJN: [id number] /
--- NOTE | 2024-09-06 09:39 | DS ---
DISCHARGE SUMMARY CHIEF COMPLAINT: Fever, cough, delirium, and mental status changes. HISTORY OF PRESENT ILLNESS AND PHYSICAL EXAMINATION: Details of this man's history and physical can be found in the initial workup. LABORATORY STUDIES: While he is in the hospital, he had laboratory studies, details of which can be found in the laboratory section of his chart. COURSE IN THE HOSPITAL: After admission, he was placed on bedrest and started on intravenous fluids and management of his hypertension and diabetes. He did improve. There was no definite evidence of pneumonitis or congestive heart failure. Echocardiogram was unremarkable. His blood pressures and blood sugars were brought down. He was doing well and felt that he could be discharged on the and to be seen in the office several days for further correction in his diabetes and hypertension. It is not sure that he will be compliant. FINAL DIAGNOSES: 1. Bronchitis. 2. Viremia. 3. Mental status changes. 4. Delirium. 5. Uncontrolled hypertension. 6. Uncontrolled diabetes. 7. Obesity. OPERATIONS: None. CONSULTATIONS: Cardiology. MMDAIJA / JACOBO: [id number] /
== END 2024-09-05 12:22 | disposition home or self-care (01) ==
LOC: EC 18:25 → 5NMEDONC 22:12 → INTOOBSV 22:12 → 1SOBS 09-03 01:38
PROVIDERS: ADMIT Family Medicine; ATTEND Family Medicine
DX: J40 Bronchitis, not specified as acute or chronic (principal); J06.9 Acute upper respiratory infection, unspecified; R41.82 Altered mental status, unspecified; E86.0 Dehydration; I16.1 Hypertensive emergency; I10 Essential (primary) hypertension; E11.65 Type 2 diabetes mellitus with hyperglycemia; E89.0 Postprocedural hypothyroidism; J81.1 Chronic pulmonary edema; R68.82 Decreased libido; D75.1 Secondary polycythemia; E78.1 Pure hyperglyceridemia; E66.01 Morbid (severe) obesity due to excess calories; Z68.41 Body mass index [BMI] 40.0-44.9, adult; Z87.891 Personal history of nicotine dependence; Z79.82 Long term (current) use of aspirin; Z79.84 Long term (current) use of oral hypoglycemic drugs; Z79.899 Other long term (current) drug therapy
CPT/HCPCS: 96361; 96374; 96375; 99291; 36415; 93005; 93306; 87651; 85379; 83880; 80061; 80053 ×2; 84443; 82803; 82009; 83605; 83690; 83735 ×2; 84100 ×2; 84484 ×2; 85025 ×2; 85610; 85730; 81003; 87040; 83721; 83036; 87636; 71045; 71046; G0378 ×4; J0360; J0131; J1885; J1920; J1938